=== PATIENT | female | born 1990 | race African-American/Black ===

== ENCOUNTER 2019-04-12 09:24 | Emergency (ER) | payer OTHER ==
[2019-04-12 09:30] VITALS: BP 111/69; PULSE 105; RESP 18; TEMP 100.1
--- NOTE | 2019-04-12 10:04 | ED ---
General Adult HPI - General Chief complaint: Skin/Abscess/Foreign Body Stated complaint: bug bite rt leg Time Seen by Provider: 04/12/19 09:30 Source: patient Mode of arrival: ambulatory Limitations: no limitations - History of Present Illness Initial comments: Dictation was produced using [employer] dictation software. please excuse any g rammatical, word or spelling errors. Chief Complaint: 28-year-old female presents with right lower extremity rash. History of Present Illness: Is a 28-year-old female presents with right lower extremity rash. She states her rash became apparent yesterday. She was walking around and shortness A house that was cutting grass. She states that last night she noted that the areas became slightly pruritic and erythematous. States localized to right lower extremity. Patient has no other complaints at this time. The ROS documented in this emergency department record has been reviewed and confirmed by me. Those systems with pertinent positive or negative responses have been documented in the HPI. All other systems are other negative and/or noncontributory. PHYSICAL EXAM: General Impression: Alert and oriented x3, not in acute distress HEENT: Normocephalic atraumatic, extra-ocular movements intact, pupils equal and reactive to light bilaterally, mucous membranes moist. Cardiovascular: Heart regular rate and rhythm, S1&S2 audible, no murmurs, rubs or gallops Chest: Lungs clear to auscultation bilaterally, no rhonchi, no wheeze, no rales Abdomen: Bowel sounds present, abdomen soft, non-tender, non-distended, no organomegaly Musculoskeletal: Pulses present and equal in all extremities, no peripheral edema Motor: no focal deficits noted Neurological: CN II-XII grossly intact, no focal motor or sensory deficits noted Skin: Multiple 1 x 1 cm erythematous slightly raised rash to the right lateral lower extremity. Psych: Normal affect and mood ED course: 28-year-old female presents with localized reaction likely secondary to bug bites. Patient given topical antipruritic agent. Vital signs upon arrival shows temperature 100.1, pulse 105. Patient denies any other symptoms at this time. Patient clear for discharge. It lasted follow-up with primary care physician. - Related Data Previous Rx's Medication Instructions Recorded Hydrocortisone Cream 1 applic TOPICAL BID #1 tube 04/12/19 [Hydrocortisone 1% Cream] Allergies Allergy/AdvReac Type Severity Reaction Status Date / Time No Known Allergies Allergy Verified 04/12/19 09:52 Review of Systems ROS Statement: Those systems with pertinent positive or pertinent negative responses have been documented in the HPI. ROS Other: All systems not noted in ROS Statement are negative. Past Medical History Past Medical History: No Reported History History of Any Multi-Drug Resistant Organisms: None Reported Past Surgical History: No Surgical Hx Reported Past Psychological History: No Psychological Hx Reported Smoking Status: Never smoker Past Alcohol Use History: None Reported Past Drug Use History: None Reported General Exam Limitations: no limitations Course Vital Signs 04/12/19 09:26 Temperature 100.1 F H Pulse Rate 105 H Respiratory 18 Rate Blood Pressure 111/69 O2 Sat by Pulse 99 Oximetry Disposition Clinical Impression: Localized skin eruption Disposition: HOME SELF-CARE Instructions (If sedation given, give patient instructions): Acute Rash (ED) Prescriptions: Hydrocortisone Cream [Hydrocortisone 1% Cream] 1 applic TOPICAL BID #1 tube Is patient prescribed a controlled substance at d/c from ED?: No Referrals: Beau Hunt DO [Primary Care Provider] - 1-2 days Time of Disposition: 10:03
== END 2019-04-12 10:16 | disposition home or self-care (01) ==
LOC: EC 09:24
DX: R21 Rash and other nonspecific skin eruption (principal)
CPT/HCPCS: 99281

== ENCOUNTER 2021-06-24 19:17 | Emergency (ER) | payer OTHER ==
[2021-06-24 20:12] VITALS: BP 106/72; PULSE 79; RESP 18; TEMP 98.8
[2021-06-24] MEDS ORDERED: DIPH,PERTUS(ACELL)TETVAC-LF 0.5 ML VIAL IM ONE (20:28)
[2021-06-24] MEDS ORDERED: RABIES IMMUNE GLOB 300 UNIT/ML 1 ML VIAL IM ONE (20:28)
[2021-06-24] MEDS ORDERED: AMOXIC-POT CLAV 875-125MG 1 EACH TAB PO STA (20:28)
[2021-06-24] MEDS ORDERED: RABIES VACCINE (PCEC) 2.5 UNIT KIT IM ONE (20:28)
--- NOTE | 2021-06-24 21:58 | ED ---
Animal Bite HPI - General Chief Complaint: Animal Bite Stated Complaint: dog bite rt calf Time Seen by Provider: 06/24/21 21:28 Source: patient Mode of arrival: ambulatory - History of Present Illness Initial Comments: 31-year-old female presents to emergency Department with a chief complaint of a dog bite. This occurred about one hour prior to arrival. Patient reports she suffered a dog bite on the right calf earlier today. Not sure if the dog has rabies vaccination. Her tetanus is not up-to-date. Reports minimal pain. Reports for range of motion and her foot distal to the injury. Denies any associated paresthesias. Denies any ALLERGIES. Not on blood thinners. - Related Data Previous Rx's Medication Instructions Recorded Hydrocortisone Cream 1 applic TOPICAL BID #1 tube 04/12/19 [Hydrocortisone 1% Cream] Allergies Allergy/AdvReac Type Severity Reaction Status Date / Time No Known Allergies Allergy Verified 06/24/21 20:12 Review of Systems ROS Statement: Those systems with pertinent positive or pertinent negative responses have been documented in the HPI. ROS Other: All systems not noted in ROS Statement are negative. Past Medical History Past Medical History: No Reported History History of Any Multi-Drug Resistant Organisms: None Reported Past Surgical History: No Surgical Hx Reported Past Psychological History: No Psychological Hx Reported Smoking Status: Never smoker Past Alcohol Use History: None Reported Past Drug Use History: None Reported General Exam Limitations: no limitations General appearance: alert, in no apparent distress Head exam: Present: atraumatic, normocephalic, normal inspection Eye exam: Present: normal appearance, PERRL, EOMI Pupils: Present: normal accommodation ENT exam: Present: normal exam, normal oropharynx, mucous membranes moist Neck exam: Present: normal inspection, full ROM. Absent: tenderness Respiratory exam: Present: normal lung sounds bilaterally. Absent: respiratory distress Cardiovascular Exam: Present: regular rate, normal rhythm, normal heart sounds. Absent: systolic murmur Extremities exam: Present: full ROM, normal capillary refill. Absent: normal inspection (Superficial dog bite on the right calf), tenderness Back exam: Present: normal inspection, full ROM. Absent: tenderness Neurological exam: Present: alert, oriented X3 Psychiatric exam: Present: normal affect, normal mood Skin exam: Present: warm, dry, intact, normal color Course Vital Signs 06/24/21 20:08 Temperature 98.8 F Pulse Rate 79 Respiratory 18 Rate Blood Pressure 106/72 O2 Sat by Pulse 100 Oximetry Medical Decision Making - Medical Decision Making 31-year-old female presents to emergency Department with chief complaint of abdominal bite. Patient was given Augmentin, tetanus, rabies immunoglobulin and rabies vaccine. She was advised to continue and finish the series for rabies vaccination. Return parameters were thoroughly discussed the patient was understanding and agreeable. Disposition Clinical Impression: Bite by animal, Dog bite Disposition: HOME SELF-CARE Condition: Stable Instructions (If sedation given, give patient instructions): Animal Bite (ED) Additional Instructions: Finish the vaccine series. Follow with the primary care physician. Take medication as directed. Return to emergency department if symptoms worsen. Is patient prescribed a controlled substance at d/c from ED?: No Referrals: Beau Hunt DO [Primary Care Provider] - 1-2 days Time of Disposition: 21:58
== END 2021-06-24 22:20 | disposition home or self-care (01) ==
LOC: EC 19:17
DX: S81.851A Open bite, right lower leg, initial encounter (principal); Z23 Encounter for immunization; W54.0XXA Bitten by dog, initial encounter
CPT/HCPCS: 90375; 90471; 90472; 90675; 90715; 96372; 99283

== ENCOUNTER 2021-07-01 17:14 | Outpatient (CLI) | payer OTHER | END 2021-07-01 18:27 | LOC: PEDOP 17:14 | PROVIDERS: ATTEND Physician Assistant Medical | DX: Z53.9 Procedure and treatment not carried out, unspecified reason (principal) ==

== ENCOUNTER 2021-07-08 17:13 | Outpatient (CLI) | payer OTHER ==
[2021-07-08] MEDS ORDERED: RABIES VACCINE (PCEC) 2.5 UNIT KIT IM ONE (18:00)
== END 2021-07-08 18:08 | disposition home or self-care (01) ==
LOC: PEDOP 17:13
PROVIDERS: ATTEND Physician Assistant Medical
DX: Z23 Encounter for immunization (principal); W54.0XXA Bitten by dog, initial encounter
CPT/HCPCS: 90471; 90675